=== PATIENT | female | born 1995 | race African-American/Black ===

== ENCOUNTER 2020-12-24 07:45 | Inpatient (IN) ==
[2020-12-24 08:31] LABS: Bilirubin,Urine Negative (Negative); Blood, Urine Moderate mg/dL (Negative); Glucose,Urine (UA) Negative (Negative); Ketones,Urine Negative (Negative); Mucus,Urine Few /LPF (Occasional); Nitrite,Urine Negative (Negative); Protein,Urine Negative; RBC,Urine 15 /HPF (0-4); Squamous Epithelial Cell,Urine Occasional /HPF (0-10); Urine Appearance CLEAR (Clear); Urine Color Yellow (Yellow); Urine Specific Gravity 1.016 (1.001-1.035); Urine Urobilinogen < 2.0 EU/DL (0.2-1.0); WBC,Urine 6 /HPF (0-6)
[2020-12-24] MEDS ORDERED: LACTATED RINGERS 1,000 ML IV ONE (11:20)
[2020-12-24] MEDS ORDERED: LACTATED RINGERS 1,000 ML IV SCH ×2 (11:30→17:00)
[2020-12-24] MEDS ORDERED: ceFAZolin 2,000 MG in PREMIX 1 EACH IV ONE (14:30)
[2020-12-24] MEDS ORDERED: CITRIC ACID/SODIUM CITRATE 30 ML UDCUP PO ONE (14:30)
[2020-12-24] MEDS ORDERED: FAMOTIDINE 20 MG/2 ML VIAL IV ONE ×2 (14:30→14:32)
[2020-12-24] MEDS ORDERED: CITRIC ACID/SODIUM CITRATE 30 ML UDCUP ONE (14:32)
[2020-12-24 14:54] LABS: Basophils % 0.2 % (0.0-0.8); Eosinophils # 0.1 10*3/uL (0.0-0.87); Eosinophils % 0.9 % (0.00-10.9); Hematocrit 35.3 VOL% (35.7-47.0); Immature Granulocytes % 1.2 %; Immature Granulocytes Absolute 0.16 #; Lymphocytes # 0.9 10*3/uL (1.4-4.0); Lymphocytes % 6.7 % (21.3-54.2); Mean Corpuscular HGB Conc 31.2 GM/DL (32-36); Mean Corpuscular Volume 82.3 FL (87-102); Monocytes % 10.4 % (1.7-12.7); Neutrophils % 80.6 % (38.7-73.9); Platelet Count 285 T/CUMM (130-400); Red Blood Count 4.29 MC/CUMM (3.8-5.5); Red Cell Distribution Width 15.7 % (9.3-17.3); White Blood Count 12.9 T/CUMM (4-12)
[2020-12-24] MEDS ORDERED: OXYTOCIN/LR 20 UNIT/1,000 ML BAG IV ONE ×2 (15:03→16:53)
[2020-12-24] MEDS ORDERED: METHYLERGONOVINE 0.2 MG/1 ML AMP ONE (15:03)
[2020-12-24] MEDS ORDERED: TRANEXAMIC ACID 1,000 MG/10 ML VIAL ONE (15:03)
[2020-12-24] MEDS ORDERED: miSOPROStoL 200 MCG TABLET ONE (15:03)
[2020-12-24] MEDS ORDERED: CARBOPROST TROMETHAMINE 250 MCG/ML AMP IM ONE (15:04)
[2020-12-24 16:51] LABS: Cord Arterial Blood HCO3 21.4 MMOL/L
[2020-12-24] MEDS ORDERED: ONDANSETRON 4 MG/2 ML VIAL ONE (16:52)
[2020-12-24] MEDS ORDERED: fentaNYL 100 MCG/2 ML VIAL ONE (16:52)
[2020-12-24] MEDS ORDERED: MORPHINE 10 MG/10 ML VIAL ONE (16:52)
[2020-12-24] MEDS ORDERED: BUPIVACAINE SPINAL 0.75% 2 ML AMP SPINAL ONE (16:52)
[2020-12-24] MEDS ORDERED: SIMETHICONE CHEW 80 MG TABLET PO PRN (16:53)
[2020-12-24] MEDS ORDERED: MAGNESIUM HYDROXIDE SUSP 30 ML UDCUP PO PRN (16:53)
[2020-12-24] MEDS ORDERED: RHO(D) IMMUNE GLOBULIN 300 MCG SYRINGE IM ONE (16:53)
[2020-12-24] MEDS ORDERED: ACETAMINOPHEN 325 MG TABLET PO PRN (16:53)
[2020-12-24] MEDS ORDERED: ONDANSETRON 4 MG/2 ML VIAL IV PRN (16:53)
[2020-12-24] MEDS ORDERED: PHENYLEPHRINE 1 MG/10 ML SYRINGE IV ONE (16:55)
[2020-12-24] MEDS ORDERED: DEXAMETHASONE 4 MG/1 ML VIAL ONE (16:56)
[2020-12-24] MEDS ORDERED: BUPIVACAINE MPF 0.25% 30 ML VIAL ONE ×2 (16:56)
[2020-12-24 16:57] LABS: Cord Venous Blood HCO3 21.8 MMOL/L; Cord Venous Blood PCO2 50.5 MMHG
[2020-12-24 16:58] LABS: Cord Venous Blood PO2 11.6
[2020-12-24 17:08] LABS: Bilirubin,Urine Negative (Negative); Blood, Urine Negative (Negative); Glucose,Urine (UA) Negative (Negative); Ketones,Urine 20 mg/dL (Negative); Mucus,Urine Occasional /LPF (Occasional); Nitrite,Urine Negative (Negative); Protein,Urine Negative; Urine Appearance CLEAR (Clear); Urine Color Yellow (Yellow); Urine Specific Gravity 1.011 (1.001-1.035); Urine Urobilinogen < 2.0 EU/DL (0.2-1.0); WBC,Urine <1 /HPF (0-6)
[2020-12-24] MEDS: KETOROLAC 30 MG/1 ML VIAL IV SCH (20:25)
[2020-12-24] MEDS: ACETAMINOPHEN 500 MG TABLET PO SCH (20:26)
[2020-12-24] MEDS: DOCUSATE SODIUM 100 MG CAPSULE PO SCH (22:06)
[2020-12-25] MEDS: ceFAZolin 1,000 MG in SYRINGE 1 EACH IV SCH ×2 (00:15→08:28)
[2020-12-25] MEDS: ACETAMINOPHEN 500 MG TABLET PO SCH ×3 (01:39→18:13)
[2020-12-25] MEDS: KETOROLAC 30 MG/1 ML VIAL IV SCH ×2 (01:40→08:23)
[2020-12-25 05:37] LABS: Basophils % 0.1 % (0.0-0.8); Eosinophils % 0.1 % (0.00-10.9); Hemoglobin 9.7 GM/DL (12.0-16.0); Immature Granulocytes % 1.5 %; Immature Granulocytes Absolute 0.29 #; Lymphocytes % 5.4 % (21.3-54.2); Mean Corpuscular HGB Conc 31.3 GM/DL (32-36); Mean Corpuscular Volume 83.1 FL (87-102); Mean Platelet Volume 9.2 FL (9.6-12.0); Monocytes % 8.6 % (1.7-12.7); Neutrophils % 84.3 % (38.7-73.9); Platelet Count 282 T/CUMM (130-400); Red Blood Count 3.73 MC/CUMM (3.8-5.5); Red Cell Distribution Width 15.4 % (9.3-17.3); White Blood Count 18.7 T/CUMM (4-12)
[2020-12-25] MEDS: DOCUSATE SODIUM 100 MG CAPSULE PO SCH ×2 (08:22→20:00)
[2020-12-25] MEDS: MULTIVITAMIN (PRENATAL) TABLET PO SCH (08:22)
[2020-12-25] MEDS: IBUPROFEN 800 MG TABLET PO PRN (19:59)
[2020-12-26 08:38] VITALS: BP 98/57
[2020-12-26] MEDS: DOCUSATE SODIUM 100 MG CAPSULE PO SCH (09:26)
[2020-12-26] MEDS: MULTIVITAMIN (PRENATAL) TABLET PO SCH (09:26)
[2020-12-26] MEDS: IBUPROFEN 800 MG TABLET PO PRN (09:30)
== END 2020-12-26 13:00 | disposition home or self-care (01) | DRG 787 ==
LOC: N.LDOUT 07:45 → N.LD 07:48 → N.OB 23:00
PROVIDERS: ADMIT Obstetrics & Gynecology; ATTEND Obstetrics & Gynecology
PROC: LDCSECT (ICD-10-PCS; 2020-12-24 15:00)